=== PATIENT | female | born 1980 | race Caucasian/White ===

== ENCOUNTER 2016-12-25 13:57 | Emergency (ER) | payer MEDICARE, MEDICAID ==
[2016-12-25] MEDS ORDERED: Sodium Chloride 0.9% 10 ML Syringe FLUSH PRN (14:03)
[2016-12-25] MEDS ORDERED: Metoclopramide 10 MG/2 ML SDV IVPUSH ONE (14:04)
[2016-12-25] MEDS ORDERED: Ondansetron 4 MG/2 ML SDV IVPUSH ONE (14:04)
[2016-12-25] MEDS ORDERED: Sodium Chloride 0.9% 1,000 ML IV ONE (14:04)
[2016-12-25] MEDS ORDERED: GI Cocktail Oral Solution 30 ML PO ONE (14:04)
[2016-12-25 14:11] VITALS: BP 134/84
--- NOTE | 2016-12-25 14:13 | EDM.PDOC ---
ED HPI GENERAL MEDICAL PROBLEM - General Chief Complaint: Abdominal Pain Stated Complaint: Severe abdominal Pain Time Seen by Provider: 12/25/16 14:01 Source of Information: Reports: Patient, Family, RN, RN Notes Reviewed History Limitations: Reports: No Limitations - History of Present Illness INITIAL COMMENTS - FREE TEXT/NARRATIVE: Patient presents to the ED at [facility] with acute onset of severe epigastric abdominal pain that started this AM. Patient states she underwent a gastric bypass about one year ago. She has on/off epigastric pain, but not as severe as today. Patient states she feels very nauseated. She was able to eat and keep food down this AM. No diarrhea. No vomiting. No UTI symptoms. Patient states the pain is sharp and stabbing. No radiation of the pain. She is s/p Keri. Onset: Today Onset Date: 12/25/16 Duration: Constant, Getting Worse Quality: Reports: Sharp, Stabbing, Throbbing Severity: Severe Improves with: Reports: None Worsens with: Reports: None Context: Denies: Activity, Exercise, Lifting, Sick Contact, Trauma Associated Symptoms: Reports: Loss of Appetite, Nausea/Vomiting Treatments HEEL GOUGER: Reports: Other (see below) (none) Epigastric Pain Score (Numeric/FACES): 10 - Related Data Allergies Allergy/AdvReac Type Severity Reaction Status Date / Time codeine Allergy Nausea and Verified 12/25/16 14:15 Vomiting varenicline [From Chantix] Allergy Depression Verified 12/25/16 14:15 Home Meds: Home Meds ARIPiprazole [Abilify] 10 mg PO DAILY 12/25/16 [History] Albuterol [IJD: Albuterol HFA] 1 puff PO ASDIRECTED 12/25/16 [History] Cyclobenzaprine [Flexeril] 10 mg PO TID PRN 12/25/16 [History] Fludrocortisone [Florinef] 0.1 mg PO WITHBREAKFAST 12/25/16 [History] Fluticasone/Salmeterol [Advair 250-50 Diskus] 1 each IH ASDIRECTED 12/25/16 [ History] Methylphenidate HCl [Ritalin] 10 mg PO BID 12/25/16 [History] Omeprazole Magnesium [Prilosec Otc] 20 mg PO DAILY 12/25/16 [History] Ondansetron [Zofran] 4 mg PO Q6H PRN 12/25/16 [History] Zolpidem [Ambien] 10 mg PO BEDTIME 12/25/16 [History] traMADol [Ultram] 50 mg PO Q4H PRN 12/25/16 [History] Past Medical History Musculoskeletal History: Reports: Arthritis Psychiatric History: Reports: Depression - Past Surgical History GI Surgical History: Reports: Bariatric Procedure, Cholecystectomy ED ROS GENERAL - Review of Systems Review Of Systems: See Below Constitutional: Reports: Decreased Appetite. Denies: Fever, Chills, Weakness Respiratory: Denies: Shortness of Breath, Cough Cardiovascular: Denies: Chest Pain, Palpitations GI/Abdominal: Reports: Abdominal Pain, Nausea. Denies: Black Stool, Bloody Stool, Diarrhea, Vomiting Skin: Reports: No Symptoms Neurological: Reports: No Symptoms ED EXAM, GI/ABD - Physical Exam Exam: See Below Exam Limited By: No Limitations General Appearance: Alert, Moderate Distress Respiratory/Chest: No Respiratory Distress, Lungs Clear, Normal Breath Sounds Cardiovascular: Normal Peripheral Pulses, Regular Rate, Rhythm GI/Abdominal: No Distention, Hyperactive Bowel Sounds, Tenderness (epigastric), Guarding, Rigidity Neurological: Alert, Oriented Skin Exam: Warm, Dry, Intact, Normal Color, No Rash Course - Vital Signs Last Recorded V/S: Last Vital Signs Temp 35.9 C 12/25/16 14:01 Pulse 96 12/25/16 14:01 Resp 24 H 12/25/16 14:01 BP 134/84 12/25/16 14:01 Pulse Ox 98 12/25/16 14:01 - Orders/Labs/Meds Orders: Active Orders 24 hr Category Date Time Status Abdomen Pelvis w Cont [CT] Stat Exams 12/25/16 14:02 Taken Sodium Chloride 0.9% [Saline Flush] Med 12/25/16 14:03 Active 10 ml FLUSH ASDIRECTED PRN methylPREDNISolone Sod Succ [Solu-MEDROL] Med 12/25/16 16:06 Once 125 mg IVPUSH ONETIME ONE predniSONE [Take Home: predniSONE 20 MG, 2 Tab Pack] Med 12/25/16 16:06 Once 1 packet PO ONETIME ONE Peripheral IV Insertion Adult [OM.PC] Routine Oth 12/25/16 14:03 Ordered Medication Orders Methylprednisolone Sodium Succinate (Solu-Medrol) 125 mg IVPUSH ONETIME ONE Stop: 12/25/16 16:07 Sodium Chloride (Saline Flush) 10 ml FLUSH ASDIRECTED PRN PRN Reason: Keep Vein Open Labs: Laboratory Tests 12/25/16 12/25/16 12/25/16 Range/Units 14:22 14:22 14:22 WBC 6.1 (4.0-10.0) x10^3/uL RBC 3.78 L (4.00-5.50) x10^6/uL Hgb 10.6 L (12.0-16.0) g/dL Hct 32.0 L (33.0-47.0) % MCV 84.7 D (78.0-93.0) fL MCH 28.0 (26.0-32.0) pg MCHC 33.1 (32.0-36.0) g/dL RDW Coeff of Thierry 14.3 (10.0-15.0) % Plt Count 222 (130-400) x10^3/uL Neut % (Auto) 51.7 (50.0-80.0) % Lymph % (Auto) 39.3 (25.0-50.0) % [place] % (Auto) 7.5 (2.0-11.0) % Eos % (Auto) 0.8 (0.0-4.0) % Baso % (Auto) 0.7 (0.2-1.2) % Sodium 140 (136-145) mmol/L Potassium 3.9 (3.5-5.1) mmol/L Chloride 105 (98-107) mmol/L Carbon Dioxide 28 (21-32) mmol/L BUN 10 (7-18) mg/dL Creatinine 0.8 (0.55-1.02) mg/dL Est Cr Clr Drug Dosing TNP Estimated GFR (MDRD) > 60 Glucose 86 (74-106) mg/dL Lactic Acid 0.8 (0.4-2.0) mmol/L Calcium 8.3 L (8.5-10.1) mg/dL Corrected Calcium 8.78 (8.5-10.1) mg/dL Total Bilirubin 0.3 (0.2-1.0) mg/dL AST 31 (15-37) U/L ALT 48 (14-59) U/L Alkaline Phosphatase 99 (46-116) U/L C-Reactive Protein < 0.2 (<=0.9) mg/dL Total Protein 6.7 (6.4-8.2) g/dL Albumin 3.4 (3.4-5.0) g/dL Globulin 3.3 Albumin/Globulin Ratio 1.03 Amylase 33 (25-115) U/L Lipase 125 (73-393) U/L Urine Color (YELLOW) Urine Appearance (CLEAR) Urine pH (5.0-8.0) Ur Specific [place] Urine Protein (NEGATIVE) mg/dL Urine Glucose (UA) (NEGATIVE) mg/dL Urine Ketones (NEGATIVE) mg/dL Urine Occult Blood (NEGATIVE) Urine Nitrite (NEGATIVE) Urine Bilirubin (NEGATIVE) Urine Urobilinogen (0.2) EU/dL Ur Leukocyte Esterase (NEGATIVE) Urine RBC (NOT SEEN) /HPF Urine WBC (NOT SEEN) /HPF Ur Squamous Epith Cells (NEGATIVE) /HPF Urine Bacteria (NEGATIVE) /HPF Urine Mucus (NEGATIVE) /LPF Urine HCG, Qual (NEGATIVE) 12/25/16 12/25/16 Range/Units 14:51 14:51 WBC (4.0-10.0) x10^3/uL RBC (4.00-5.50) x10^6/uL Hgb (12.0-16.0) g/dL Hct (33.0-47.0) % MCV (78.0-93.0) fL MCH (26.0-32.0) pg MCHC (32.0-36.0) g/dL RDW Coeff of Thierry (10.0-15.0) % Plt Count (130-400) x10^3/uL Neut % (Auto) (50.0-80.0) % Lymph % (Auto) (25.0-50.0) % [place] % (Auto) (2.0-11.0) % Eos % (Auto) (0.0-4.0) % Baso % (Auto) (0.2-1.2) % Sodium (136-145) mmol/L Potassium (3.5-5.1) mmol/L Chloride (98-107) mmol/L Carbon Dioxide (21-32) mmol/L BUN (7-18) mg/dL Creatinine (0.55-1.02) mg/dL Est Cr Clr Drug Dosing Estimated GFR (MDRD) Glucose (74-106) mg/dL Lactic Acid (0.4-2.0) mmol/L Calcium (8.5-10.1) mg/dL Corrected Calcium (8.5-10.1) mg/dL Total Bilirubin (0.2-1.0) mg/dL AST (15-37) U/L ALT (14-59) U/L Alkaline Phosphatase (46-116) U/L C-Reactive Protein (<=0.9) mg/dL Total Protein (6.4-8.2) g/dL Albumin (3.4-5.0) g/dL Globulin Albumin/Globulin Ratio Amylase (25-115) U/L Lipase (73-393) U/L Urine Color Dark yellow H (YELLOW) Urine Appearance Clear (CLEAR) Urine pH 5.5 (5.0-8.0) Ur Specific [place] 1.015 Urine Protein Negative (NEGATIVE) mg/dL Urine Glucose (UA) Negative (NEGATIVE) mg/dL Urine Ketones Negative (NEGATIVE) mg/dL Urine Occult Blood Moderate H (NEGATIVE) Urine Nitrite Negative (NEGATIVE) Urine Bilirubin Negative (NEGATIVE) Urine Urobilinogen 0.2 (0.2) EU/dL Ur Leukocyte Esterase Negative (NEGATIVE) Urine RBC 0-5 (NOT SEEN) /HPF Urine WBC 0-5 (NOT SEEN) /HPF Ur Squamous Epith Cells Moderate H (NEGATIVE) /HPF Urine Bacteria Rare (NEGATIVE) /HPF Urine Mucus Few H (NEGATIVE) /LPF Urine HCG, Qual Negative (NEGATIVE) Meds: Medications Generic Name Dose Route Start Last Admin Trade Name Freq PRN Reason Stop Dose Admin Methylprednisolone Sodium Succinate 125 mg 12/25/16 16:06 Solu-Medrol IVPUSH 12/25/16 16:07 ONETIME ONE Sodium Chloride 10 ml 12/25/16 14:03 Saline Flush FLUSH ASDIRECTED PRN Keep Vein Open Discontinued Medications Generic Name Dose Route Start Last Admin Trade Name Freq PRN Reason Stop Dose Admin Al Hydroxide/Mg Hydroxide 30 ml 12/25/16 14:04 12/25/16 14:42 Gi Cocktail PO 12/25/16 14:05 30 ml ONETIME ONE Administration Sodium Chloride 1,000 mls @ 999 mls/hr 12/25/16 14:04 12/25/16 14:38 Normal Saline IV 12/25/16 15:04 999 mls/hr ONETIME ONE Administration Metoclopramide HCl 10 mg 12/25/16 14:04 12/25/16 14:40 Reglan IVPUSH 12/25/16 14:05 10 mg ONETIME ONE Administration Morphine Sulfate 2 mg 12/25/16 14:47 12/25/16 14:52 Morphine IVPUSH 12/25/16 14:48 2 mg ONETIME ONE Administration Ondansetron HCl 4 mg 12/25/16 14:04 12/25/16 14:38 Zofran IVPUSH 12/25/16 14:05 4 mg ONETIME ONE Administration - Radiology Interpretation Free Text/Narrative:: CT Abdomen/Pelvis: Possible changes of enteritis in the upper abdomen. Otherwise, no significant abnormality is identified in the abdomen or pelvis. See scanned report in EMR CT Results Date: 12/25/16 CT Results Time: 15:57 Departure - Departure Time of Disposition: 16:08 Disposition: Home, Self-Care 01 Condition: Good Clinical Impression: Enteritis, Viral gastroenteritis - Discharge Information Instructions: Viral Gastroenteritis, Adult, [id number] Referrals: Antony Davila MD [Primary Care Provider] - Forms: ED Department Discharge Additional Instructions: 1. Stay well hydrated and rest 2. Eat a bland diet; no grassy or fatty foods for several days 3. Take steroid medication for the entire course, even if you are feeling better 4. Take pain medication sparingly 5. Make a follow up appointment with your Primary this week 6. Call with any questions - Problem List Review Problem List Initiated/Reviewed/Updated: Yes - My Orders Last 24 Hours: My Active Orders 12/25/16 14:02 Abdomen Pelvis w Cont [CT] Stat 12/25/16 14:03 Sodium Chloride 0.9% [Saline Flush] 10 ml FLUSH ASDIRECTED PRN Peripheral IV Insertion Adult [OM.PC] Routine 12/25/16 16:06 methylPREDNISolone Sod Succ [Solu-MEDROL] 125 mg IVPUSH ONETIME ONE predniSONE [Take Home: predniSONE 20 MG, 2 Tab Pack] 1 packet PO ONETIME ONE - Assessment/Plan Last 24 Hours: My Active Orders 12/25/16 14:02 Abdomen Pelvis w Cont [CT] Stat 12/25/16 14:03 Sodium Chloride 0.9% [Saline Flush] 10 ml FLUSH ASDIRECTED PRN Peripheral IV Insertion Adult [OM.PC] Routine 12/25/16 16:06 methylPREDNISolone Sod Succ [Solu-MEDROL] 125 mg IVPUSH ONETIME ONE predniSONE [Take Home: predniSONE 20 MG, 2 Tab Pack] 1 packet PO ONETIME ONE
[2016-12-25 14:47] LABS: CHLORIDE,CL 105 mmol/L (98-107); SODIUM,NA 140 mmol/L (136-145)
[2016-12-25] MEDS ORDERED: Morphine 2 MG/ML Syringe IVPUSH ONE (14:47)
[2016-12-25] MEDS ORDERED: Take Home: predniSONE 20 MG, 2 Tab Pack PO ONE (16:06)
[2016-12-25] MEDS ORDERED: methylPREDNISolone Sodium Succinate 125 MG/2 ML SDV IVPUSH ONE (16:06)
[2016-12-25] MEDS ORDERED: Take Home: traMADol 50 MG, 4 Tab Pack PO ONE (16:10)
== END 2016-12-25 16:35 | disposition home or self-care (01) ==
LOC: VM.ED 13:57
DX: A08.4 Viral intestinal infection, unspecified (principal); F32.9 Major depressive disorder, single episode, unspecified; M19.90 Unspecified osteoarthritis, unspecified site; Z88.5 Allergy status to narcotic agent; Z79.899 Other long term (current) drug therapy; Z90.49 Acquired absence of other specified parts of digestive tract; Z98.84 Bariatric surgery status
CPT/HCPCS: 36415; 74177; 80053; 81001; 81025; 82150; 83605; 83690; 85025; 86140; 96361; 96374; 96375; 99284; A9270; J2270; J2405; J2765; J2930; J7030

== ENCOUNTER 2017-01-15 20:03 | Emergency (ER) | payer MEDICARE, MEDICAID ==
[2017-01-15] MEDS ORDERED: Sodium Chloride 0.9% 10 ML Syringe FLUSH PRN ×2 (20:19→20:20)
[2017-01-15] MEDS ORDERED: Ketorolac 30 MG/ML SDV IVPUSH ONE (20:20)
[2017-01-15] MEDS ORDERED: methylPREDNISolone Sodium Succinate 125 MG/2 ML SDV IV ONE (20:20)
[2017-01-15] MEDS ORDERED: Sodium Chloride 0.9% 1,000 ML IV ONE (20:22)
[2017-01-15 20:46] VITALS: BP 116/56
[2017-01-15 21:27] LABS: CHLORIDE,CL 107 mmol/L (98-107); SODIUM,NA 138 mmol/L (136-145)
--- NOTE | 2017-01-16 01:37 | ER ---
Date of Service: 01/15/2017 SUBJECTIVE: The patient presents to the emergency room with complaints of left posterior chest wall pain worse with deep breathing. The patient states that she has been experiencing this for several hours. She states that the pain is so significant that is causing her difficulty with breathing. She states she is not experiencing any substernal chest pain. No jaw, arm, neck, or back pain. She is not experiencing any nausea, vomiting, or diarrhea. She states this is the first time she has experienced discomfort like this. She states that she does have a history of asthma but denies any increased wheezing as of late. PAST MEDICAL HISTORY: 1. Asthma. 2. Anxiety. 3. Depression. 4. GERD. 5. Status post gastric bypass. MEDICATIONS: 1. Advair Diskus 250/50. 2. Florinef 0.1 mg p.o. with breakfast. 3. Cyclobenzaprine 10 mg p.o. t.i.d. p.r.n. 4. Albuterol HFA 1 puff as needed. 5. Abilify 10 mg p.o. daily. 6. Tramadol 50 mg p.o. q.4 hours p.r.n. 7. Ultram 50 mg p.o. q.4 hours p.r.n. 8. Ambien 10 mg p.o. at bedtime. 9. Zofran 4 mg p.o. q.6 hours p.r.n. 10.Prilosec OTC 20 mg p.o. b.i.d. 11.Ritalin 10 mg p.o. b.i.d. ALLERGIES: Codeine and Chantix. REVIEW OF SYSTEMS: General: Denies any fever or chills. HEENT: Denies any sore throat, rhinorrhea, or congestion. Respiratory/Cardiac: Please see history present illness. Denies any substernal chest pain. No palpitations. GI: No nausea, vomiting, or diarrhea. No melena, hematochezia, or hematemesis. : Denies any dysuria. Neurologic: No fainting, blackouts, or lightheadedness. PHYSICAL EXAMINATION: General: This is a 36-year-old female patient, in no acute distress. Vital Signs: Blood pressure is 116/56, heart rate is 61, temperature is 36.9, respiratory rate 15, O2 saturations 99%. Skin: Warm, pink, and dry. HEENT: Mouth, oral mucosa is moist. Lungs: Clear to auscultation. Heart: Regular rate and rhythm. Normal S1, S2. No S3, S4, murmurs, clicks, or rubs. Abdomen: Soft, nontender. There is no hepatosplenomegaly noted. There is no masses noted. Extremities: Without edema. Neurologic: The patient is alert and oriented, answers all questions appropriately. Her speech is fluent. Her gait is within normal limits. LABORATORY DATA: WBCs 8.7, hemoglobin is 11.2, platelets are 219. Coags; PT is 10.8, INR is 1.0. D-dimer is negative at 0.33. Chemistry; sodium is 138, potassium is 4.1, chloride is 107, bicarb is 29, BUN is 15, creatinine is 0.9. GFR is greater than 60. Glucose is 85, calcium is 8.1, corrected calcium is 8.74, total bilirubin is 0.2. AST is 28, ALT is 47, alkaline phosphatase is 105. CK is 73, CK MB is 0.5. Troponin is less than 0.017. C-reactive protein is less than 0.2, total protein is 6.6, albumin is 3.2. PA and lateral chest x-ray was obtained. There was no evidence of any acute infiltrate or other pathology. A 12-lead EKG was obtained. There did not appear to be any acute ST or T-wave changes. EMERGENCY ROOM COURSE: IV access was established. The patient was given a liter of normal saline IV. She was also given Solu-Medrol 125 mg IV and Toradol 30 mg IV. She did report some improvement in her discomfort. She remained stable under my care in the emergency. ASSESSMENT: Pleurisy. PLAN: The patient will be discharged. Prednisone 40 mg daily for 6 days, ibuprofen 600 mg every 6 hours for discomfort. She also does get tramadol, which she can take at home as well. All questions were answered. MWK: 01/16/2017 00:26:34 MODL: 01/16/2017 01:31:38 /[id number]
== END 2017-01-15 21:55 | disposition home or self-care (01) ==
LOC: VM.ED 20:03
DX: R09.1 Pleurisy (principal); J45.909 Unspecified asthma, uncomplicated; F41.9 Anxiety disorder, unspecified; F32.9 Major depressive disorder, single episode, unspecified; K21.9 Gastro-esophageal reflux disease without esophagitis; Z98.84 Bariatric surgery status; Z88.5 Allergy status to narcotic agent; J90 Pleural effusion, not elsewhere classified
CPT/HCPCS: 36415; 71020; 80053; 82550; 82553; 84484; 85025; 85379; 85610; 86140; 93005; 96361; 96374; 96375; 99284; 99285; J1885; J2930; J7030